=== PATIENT | male | born 1950 | race Caucasian/White ===

== ENCOUNTER 2018-02-07 15:00 | Emergency (ER) | payer OTHER, MEDICARE ==
--- NOTE | 2018-02-07 15:11 | EDPHY ---
H & P Stated Complaint: L sided chest "soreness" x 2 days--sent from pcp for abnormal EKG Time Seen by Provider: 02/07/18 15:09 - Medical/Surgical History Hx Asthma: No Hx Chronic Respiratory Disease: No Hx Diabetes: No Hx Cardiac Disease: Yes Hx Renal Disease: No Hx Cirrhosis: No Hx Alcoholism: No Hx HIV/AIDS: No Hx Splenectomy or Spleen Trauma: No Other PMH: HERNIA REPAIR, HEART ABLATION WPW, PE - Social History Smoking Status: Former smoker Constitutional: Initial Vital Signs Temperature (C) 36.7 C 02/07/18 15:03 Heart Rate 85 02/07/18 15:03 Respiratory Rate 16 02/07/18 15:03 Blood Pressure 151/90 H 02/07/18 15:03 O2 Sat (%) 97 02/07/18 15:03 O2 Delivery Mode Room Air Allergies/Adverse Reactions: Sulfa (Sulfonamide Antibiotics) Allergy (Severe, Verified 10/11/13 20:26) swelling gluten [Gluten] Allergy (Verified 10/11/13 20:26) Home Medications: Medication Instructions Recorded Ketoconazole 02/07/18 Warfarin Sodium 02/07/18 Medical Decision Making - Diagnostics Imaging Results: Imaging Impressions Chest X-Ray 02/07/18 15:23 Impression: 1. No active cardiopulmonary disease seen. 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 He presents at the request of his primary care provider, Dr. Alvarado, at [facility] for evaluation of chest discomfort and an abnormal EKG. The patient states he developed a sensation of upper left chest soreness on Tuesday evening during sexual exertion. This persisted throughout the day on Tuesday. He denies any sharp pains or shortness of breath. Today while walking and lifting, he had no exacerbation of his discomfort, but it has remained constant. He denies any radiation, no associated symptoms including nausea, vomiting, lightheadedness, syncope. He has history of PE one year ago and had sharp pains in his right chest associated with this. He has been anticoagulated since that time. The patient endorses some increased stress lately regarding work. He denies any recent trauma. No fever, abdominal pain, diarrhea, urinary complaints, or other associated symptoms. REVIEW OF SYSTEMS: A comprehensive 10 system review of systems is otherwise negative aside from elements mentioned in the history of present illness and medical decision making. PHYSICAL EXAM: HR, BP, O2 Sat, RR. Temp noted General Appearance: Alert, well hydrated, appropriate, and non-toxic appearing. Head: Atraumatic without scalp tenderness or obvious injury Eyes: Pupils equal, round, reactive to light and accommodation, EOMI, no trauma , no injection. Throat: There is no erythema or exudates, no lesions, normal tonsils, mucus membranes moist. Neck: Supple, nontender, no lymphadenopathy. Respiratory: No retractions, no distress, no wheezes, and no accessory muscle use. Lungs are clear to auscultation bilaterally. Cardiovascular: Regular rate and rhythm, no murmurs, rubs, or gallops. Bilateral carotid, radial, dorsalis pedis, and posterior tibial pulses intact. Good capillary refill all extremities. Gastrointestinal: Abdomen is soft, nontender, non-distended. Musculoskeletal: Normal active ROM of all extremities, atraumatic. Neurological: Alert, appropriate, and interactive. Nonfocal neuro exam. Skin: No rashes, good turgor, no nodules on palpation. Past medical history: WPW s/p ablation. Pulmonary emboli (Warfarin). Past surgical history: Ablation for WPW. Family history: Noncontributory. Social history: . Retired. Former smoker. Sampler Tester: Dr. Duque DIAGNOSTICS/PROCEDURES/CRITICAL CARE TIME: The 12 lead EKG was interpreted by myself. See hard copy and/or "tracemaster" electronic copy for interpretation. Sinus rhythm, rate 93. DIFFERENTIAL DIAGNOSIS: The differential diagnosis for the patient's chest pain included but was not limited to myocardial ischemia, pulmonary embolus, chest wall pain, pleural inflammation, and pulmonary infectious causes. MEDICAL DECISION MAKING: Anticoagulated 67 y/o male presents at the request of his primary care provider for evaluation of two day history of left-sided chest discomfort. This sensation is not reproducible on exam. Plan for EKG, chest x-ray, labs including CBC, chemistries, troponin. Plan for d-dimer and coag panel given the patient's history of PE and anticoagulation status. 16:05 POC troponin negative at 0.01. CBC and chemistries are unremarkable. Reviewed chest x-ray. This is negative for acute processes. EKG here in the department showed sinus rhythm, no abnormalities. Patient's HEART score is 2 based on age >65. Troponin is negative: this test should be very sensitive given 48 hour history of symptoms. Serial troponin is not indicated for this patient. The patient has no history of hypertension, hyperlipidemia, diabetes, CAD, no recent tobacco use. I have low suspicion for cardiac etiology of the patient's discomfort. Tests for PE rule out including D-dimer and coag panel are pending at this time. 16:55 D-dimer is negative, <0.27. INR is therapeutic at 2.61. Further evaluation for PE including CTA chest is not indicated at this time. 17:00 Reassessed patient. Discussed imaging and laboratory results. The patient does not wish to proceed with further testing including CTA. Plan to discharge home in good condition. Discussed HEART score with patient. Referral to cardiology provided for further evaluation. Follow up and return precautions discussed. The patient is comfortable with this plan. - Data Points Laboratory Results: Laboratory Results 02/07/18 15:45 02/07/18 15:45 02/07/18 02/07/18 02/07/18 15:48 15:47 15:45 WBC RBC Hgb POC Hgb 16.0 gm/dL gm/dL (13.7-17.5) Hct POC Hct 47 % % (40-51) MCV MCH MCHC RDW Plt Count MPV Neut % (Auto) Lymph % (Auto) Hopkins % (Auto) Eos % (Auto) Baso % (Auto) Nucleat RBC Rel Count Absolute Neuts (auto) Absolute Lymphs (auto) Absolute Monos (auto) Absolute Eos (auto) Absolute Basos (auto) Absolute Nucleated RBC Immature Gran % Immature Gran # PT INR APTT D-Dimer POC Sodium 143 mEq/L mEq/L (135-145) Sodium 138 mEq/L mEq/L (135-145) POC Potassium 3.6 mEq/L mEq/L (3.3-5.0) Potassium 4.7 mEq/L mEq/L (3.3-5.0) POC Chloride 104 mEq/L mEq/L (97-110) Chloride 104 mEq/L mEq/L (97-110) Carbon Dioxide 23 mEq/l mEq/l (22-31) Anion Gap 11 mEq/L mEq/L (6-14) POC BUN 24 mg/dL H mg/dL (7-23) BUN 21 mg/dL mg/dL (7-23) Creatinine 0.8 mg/dL mg/dL (0.7-1.3) POC Creatinine 0.9 mg/dL mg/dL (0.7-1.3) Estimated GFR > 60 Glucose 94 mg/dL mg/dL (70-100) POC Glucose 98 mg/dL mg/dL (70-100) Calcium 9.7 mg/dL mg/dL (8.5-10.4) POC Troponin I 0.01 ng/mL ng/mL (0.00-0.08) NT-Pro-B Natriuret Pep 125 pg/mL pg/mL (0-125) Specimen Hemolysis 160 02/07/18 02/07/18 15:45 15:45 WBC 6.73 10^3/uL 10^3/uL (3.80-9.50) RBC 5.24 10^6/uL 10^6/uL (4.40-6.38) Hgb 15.3 g/dL g/dL (13.7-17.5) POC Hgb Hct 45.1 % % (40.0-51.0) POC Hct MCV 86.1 fL fL (81.5-99.8) MCH 29.2 pg pg (27.9-34.1) MCHC 33.9 g/dL g/dL (32.4-36.7) RDW 13.6 % % (11.5-15.2) Plt Count 188 10^3/uL 10^3/uL (150-400) MPV 10.6 fL fL (8.7-11.7) Neut % (Auto) 60.7 % % (39.3-74.2) Lymph % (Auto) 23.2 % % (15.0-45.0) Hopkins % (Auto) 11.7 % % (4.5-13.0) Eos % (Auto) 3.4 % % (0.6-7.6) Baso % (Auto) 0.7 % % (0.3-1.7) Nucleat RBC Rel Count 0.0 % % (0.0-0.2) Absolute Neuts (auto) 4.08 10^3/uL 10^3/uL (1.70-6.50) Absolute Lymphs (auto) 1.56 10^3/uL 10^3/uL (1.00-3.00) Absolute Monos (auto) 0.79 10^3/uL 10^3/uL (0.30-0.80) Absolute Eos (auto) 0.23 10^3/uL 10^3/uL (0.03-0.40) Absolute Basos (auto) 0.05 10^3/uL 10^3/uL (0.02-0.10) Absolute Nucleated RBC 0.00 10^3/uL 10^3/uL (0-0.01) Immature Gran % 0.3 % % (0.0-1.1) Immature Gran # 0.02 10^3/uL 10^3/uL (0.00-0.10) PT 27.9 SEC H SEC (12.0-15.0) INR 2.61 H (0.83-1.16) APTT 46.2 SEC H SEC (23.0-38.0) D-Dimer < 0.27 ug/mLFEU ug/mLFEU (0.00-0.50) POC Sodium Sodium POC Potassium Potassium POC Chloride Chloride Carbon Dioxide Anion Gap POC BUN BUN Creatinine POC Creatinine Estimated GFR Glucose POC Glucose Calcium POC Troponin I NT-Pro-B Natriuret Pep Specimen Hemolysis Point of Care Test Results: Chemistry 02/07/18 02/07/18 15:48 15:47 POC Sodium 143 mEq/L mEq/L (135-145) POC Potassium 3.6 mEq/L mEq/L (3.3-5.0) POC Chloride 104 mEq/L mEq/L (97-110) POC BUN 24 mg/dL H mg/dL (7-23) POC Creatinine 0.9 mg/dL mg/dL (0.7-1.3) POC Glucose 98 mg/dL mg/dL (70-100) POC Troponin I 0.01 ng/mL ng/mL (0.00-0.08) ISTAT H&H 02/07/18 15:48 POC Hgb 16.0 gm/dL gm/dL (13.7-17.5) POC Hct 47 % % (40-51) Departure - Departure Disposition: Home, Routine, Self-Care Clinical Impression: Chest wall pain, Atypical chest pain Condition: Good Instructions: Chest Pain (ED), Noncardiac Chest Pain (ED) Additional Instructions: Follow-up with your primary doctor within 2-3 days. Return to the Emergency Department for fever, chest pain, shortness of breath, increasing pain or other worsening of condition. Follow up with a dielectric machine operator for further testing, as soon as possible, within one week. As we discussed, it is impossible to fully rule out heart disease as the cause of your chest pain in the emergency department. We would be happy to reevaluate you and observe you in the hospital at any time. Referrals: Noble Alvarado MD [Primary Care Provider] - As per Instructions Dmitriy Altamirano MD [Medical Doctor] - As per Instructions Report Scribed for: Kris Nielsen Report Scribed by: Asha Dumont Date of Report: 02/07/18 Time of Report: 15:12
[2018-02-07 16:10] LABS: PLATELET COUNT 188 10^3/uL (150-400)
--- NOTE | 2018-02-07 16:55 | CPEKG ---
Test Reason : OPEN Blood Pressure : / mmHG Vent. Rate : 093 BPM Atrial Rate : 092 BPM P-R Int : 142 ms QRS Dur : 091 ms QT Int : 365 ms P-R-T Axes : 065 065 047 degrees QTc Int : 454 ms Sinus rhythm Confirmed by Washington Gregorio ([id number]) on 02/07/2018 4:54:33 PM Referred By: Confirmed By:Washington Gregorio
[2018-02-07 16:56] LABS: INR 2.61 (0.83-1.16); PROTIME(PATIENT) 27.9 SEC (12.0-15.0)
[2018-02-07 17:13] VITALS: BP 149/86
== END 2018-02-07 17:20 | disposition home or self-care (01) ==
DX: R07.89 Other chest pain (principal); R94.31 Abnormal electrocardiogram [ECG] [EKG]; Z79.01 Long term (current) use of anticoagulants; Z87.891 Personal history of nicotine dependence
CPT/HCPCS: 82435-PO; 82565-PO; 82947-PO; 84132-PO; 84295-PO; 84484-PO; 84520-PO; 85014-PO

== ENCOUNTER → 2018-03-01 | Outpatient (CLI) | payer OTHER, MEDICARE | LOC: BHFA 14:00 | PROVIDERS: ATTEND Internal Medicine Cardiovascular Disease | DX: R94.31 Abnormal electrocardiogram [ECG] [EKG] (principal); R07.9 Chest pain, unspecified | CPT/HCPCS: 78452; 93017; A9500 ==

== ENCOUNTER → 2018-10-09 | Outpatient (CLI) | payer OTHER, MEDICARE | LOC: FIMAGING 11:34 ==